=== PATIENT | female | born 1945 | race Caucasian/White ===

== ENCOUNTER 2016-11-14 13:08 | Outpatient (CLI) | payer MEDICARE, OTHER | END 2016-11-14 13:09 | disposition home or self-care (01) | LOC: BURLAB 13:08 | PROVIDERS: ATTEND Neurological Surgery | DX: Z01.812 Encounter for preprocedural laboratory examination (principal) | CPT/HCPCS: 36415; 82565 ==

== ENCOUNTER 2016-11-15 14:22 | Outpatient (CLI) | payer MEDICARE, OTHER ==
[~2016-11-15 14:22] MED LIST: Magnevist 469MG/ML 20 ML VIAL ONE
--- NOTE | 2016-11-15 18:09 | MRI ---
MRI LUMBAR SPINE WITH AND WITHOUT CONTRAST 11/15/16 Multiplanar and multisequential imaging lumbar spine obtained. Postcontrast images obtained with adm inistration of 15 mL of Multihance. HISTORY: Low back pain. History of prior lumbar surgery. Comparison made to lumbar MRI of 05/30/14. That exam described a transitional vertebra. Postop danny ctomy changes were seen at what was labeled L5-S1. There is a large synovial cyst on the left at L4- 5 noted on that exam measuring up to 1.2 cm. The same nomenclature will be followed on today's exam. This makes S1 a transitional vertebrae. The lumbar vertebrae maintain height and alignment. No evidence of disc bulge or protrusion seen at L1-2, L2-3, or L3-4 levels. There is mild facet arth rosis at these levels; however, no central canal or foraminal stenosis. At L4-5, there are posterior laminectomy changes. There is facet hypertrophy compressing the thecal sac from each side. Facet arthrosis with fluid in the facet joint. The large synovial cyst at this l evel noted previously is no longer seen. Mild central canal stenosis. At L5-S1, no significant disc bulge or protrusion. Facet arthrosis and mild hypertrophy. Posterior l aminectomy change. Very mild central canal stenosis due to facet hypertrophy. IMPRESSION: Postoperative changes at L4-5 and L5-S1. The large synovial cyst on the left at L4-5 is no longer pr esent. Facet arthrosis and hypertrophy seen at these levels as described above. POS: [facility]
--- NOTE | 2016-11-15 21:06 | RAD ---
LUMBAR SPINE 11/15/16 The patient has a transitional lumbosacral vertebra. The lowest freely moveable vertebra will be lab eled L5 and consistent with the labeling on her MRI exams. There is some very minimal anterolisthesis of L4 on L5 that appears to be due to some mild facet art hritis at this level. With flexion, the L4 vertebra moves forward by about 2 mm. There is mild disc space narrowing at L4-L5. The other vertebrae appear intact. There is no excessive motion with exten mehce. The aorta and proximal iliac arteries are densely calcified. IMPRESSION: Mild grade I anterolisthesis of L4 on L5. L4 moves anteriorly an additional 2 mm or so with flexion and does not change much position with extension. There is disc space narrowing at this level. POS: HOME
== END 2016-11-15 14:23 | disposition home or self-care (01) ==
LOC: BURMRI 14:22
PROVIDERS: ATTEND Neurological Surgery
DX: M54.16 Radiculopathy, lumbar region (principal); M71.38 Other bursal cyst, other site
CPT/HCPCS: 72100; 72158; A9579

== ENCOUNTER 2016-12-17 08:13 | Outpatient (CLI) | payer MEDICARE, OTHER ==
[2016-12-17 09:06] LABS: ALT (SGPT) 29 U/L (0-55); AST (SGOT) 20 U/L (5-34); Alkaline Phosphatase 75 U/L (40-150); Bilirubin, Direct 0.2 mg/dL (0.1-0.3); Bilirubin, Total 0.6 mg/dL (0.2-1.2); LDL Cholesterol, Calculated 89 mg/dL; Protein, Total 6.5 g/dL (5.8-8.1)
== END 2016-12-17 08:14 | disposition home or self-care (01) ==
LOC: BURLAB 08:13
PROVIDERS: ATTEND Internal Medicine Cardiovascular Disease
DX: E78.00 Pure hypercholesterolemia, unspecified (principal)
CPT/HCPCS: 36415; 80061; 80076

== ENCOUNTER 2017-05-22 10:40 | Outpatient (CLI) | payer MEDICARE, OTHER ==
--- NOTE | 2017-05-22 18:08 | ULT ---
CAROTID ULTRASOUND 05/22/17 Bilateral color duplex doppler ultrasonography of the carotid and vertebral circulation was performe d in this patient with syncopal issues. Some plaque and intimal thickening is seen in each distal common carotid artery and extending into e ach bifurcation. No large grossly obstructing plaques were seen. Analysis of the right carotid syste m showed peak flows of 87/18 cm/s in the right ICA with a normal 1.15 systolic velocity ratio. Flows in the common carotid artery and external carotid artery were within normal limits. Vertebral flow on the right was antegrade. Peak flows in the left carotid system were 98/28 with a normal 1.31 systolic velocity ratio. Flows i n the common and external carotid arteries were within normal limits. Vertebral flow in the left was antegrade. IMPRESSION: Abundant plaque formation is noted but no hemodynamically significant stenoses were encountered. POS: HOME
== END 2017-05-22 10:41 | disposition home or self-care (01) ==
LOC: BURULT 10:40
PROVIDERS: ATTEND Family Medicine
DX: R55 Syncope and collapse (principal); G45.1 Carotid artery syndrome (hemispheric)
CPT/HCPCS: 93880

== ENCOUNTER 2017-12-06 13:06 | Outpatient (CLI) | payer MEDICARE, OTHER ==
--- NOTE | 2017-12-06 17:30 | RAD ---
LUMBAR SPINE FIVE VIEWS 12/06/17 The patient appears to have a transitional vertebra at the lumbosacral junction with a partially fuse d disc space below it. This will be labeled as S1. No fracture, dislocation, or acute bony change was seen. There is slight disc space narrowing at L4-L5 with small anterior osteophytes. There is probab ly some mild facet arthritis at the L4 through S1 levels. Flexion and extension lateral views did not show any abnormal motion of the spine. Incidentally noted was dense arteriosclerosis of the distal a bibiana and iliac arteries. Additionally, a large amount of fecal material is seen in the colon. IMPRESSION: 1. No acute bony findings. 2. Slight disc space narrowing at L4-L5. POS: HOME
== END 2017-12-06 13:07 | disposition home or self-care (01) ==
LOC: BURRAD 13:06
PROVIDERS: ATTEND Nurse Practitioner Family
DX: M43.06 Spondylolysis, lumbar region (principal); M99.73 Connective tissue and disc stenosis of intervertebral foramina of lumbar region
CPT/HCPCS: 72110

== ENCOUNTER 2018-02-24 06:12 | Emergency (ER) | payer MEDICARE, OTHER ==
[2018-02-24] MEDS ORDERED: Fentanyl 100 MCG/2 ML VIAL ONE ×2 (06:53→07:38)
[2018-02-24 07:04] LABS: #Basophils 0.1 thou/uL (0.0-0.2); #Eosinphils 0.1 thou/uL (0.0-0.7); #Monocytes 0.9 thou/uL (0.11-0.59); #Neutrophils 10.7 thou/uL (1.40-6.50); %Basophils 0.7 % (0.0-1.0); %Eosinophils 0.6 % (0.0-10.0); %Lymphocytes 14.5 % (21.0-51.0); %Monocytes 6.4 % (0.0-10.0); %Neutrophils 77.9 % (42.0-75.0); Hemoglobin 18.4 g/dL (12.0-16.0); Mean Corpuscular HGB CONC 35.4 g/dL (32.0-36.0); Mean Corpuscular Hemoglobin 30.9 pg (27.0-31.0); Mean Corpuscular Volume 87.1 fl (81.0-99.0); Mean Platelet Volume 6.7 fL (7.4-10.4); Platelet Count 247 thou/uL (130-400); RBC Distribution Width 12.4 % (11.5-14.5); Red Blood Cell (RBC) Count 5.95 mill/uL (4.20-5.40); White Blood Cell (WBC) Count 13.7 thou/uL (4.8-10.8)
[2018-02-24 07:06] LABS: Bilirubin Negative (Negative); Blood, Urine Large (Negative); Clarity Cloudy (Clear); Glucose, Urine (Dipstick) Negative (Negative); Leukocyte Large (Negative); Nitrite Negative (Negative); Protein, Urine (Dipstick) 100 mg/dL (Neg-Trace); Specific Gravity, Urine 1.025 (1.005-1.030); Urobilinogen 0.2 mg/dL (0.2-1.0); pH, Urine 5.5 (5.0-9.0)
[2018-02-24 07:10] LABS: ALT (SGPT) 41 U/L (8-55); AST (SGOT) 36 U/L (5-34); Alkaline Phosphatase 97 U/L (40-150); Anion Gap 15 mmol/L (10-20); BUN (Urea Nitrogen) 13 mg/dL (9.8-20.1); Bilirubin, Total 0.4 mg/dL (0.2-1.2); Calc. Creatinine Clearance 0 mL/min (70-130); Calcium 9.8 mg/dL (7.8-10.44); Carbon Dioxide 27 mmol/L (23-31); Chloride 103 mmol/L (98-107); Estimated GFR-MDRD 73; Globulin 3.2 g/dL (2.4-3.5); Glucose 121 mg/dL (83-110); Protein, Total 7.2 g/dL (6.0-8.3); Sodium 141 mmol/L (136-145)
[2018-02-24 07:16] LABS: Bacteria/HPF 1+ HPF (None Seen); Crystals/HPF 1+ AMORPH URATES HPF (Negative); Squamous Epithelial 0-3 HPF (0-3)
[2018-02-24] MEDS ORDERED: cefTRIAXone\\ROCEPHIN 2 GM VIAL ONE (07:38)
[2018-02-24] MEDS ORDERED: Sodium Chloride 0.9% 100 ML ONE (07:38)
[2018-02-24] MEDS ORDERED: Dicyclomine 20 MG TAB ONE (08:01)
[2018-02-24] MEDS ORDERED: Ketorolac Tromethamine 30 MG/ML VIAL ONE (08:01)
[2018-02-24] MEDS ORDERED: Ondansetron HCl/PF 4 MG/2 ML Vial ONE (08:07)
--- NOTE | 2018-02-24 20:04 | RAD ---
AP PORTABLE CHEST: 02/24/2018 0632 HOURS COMPARISON: 12/18/2012 FINDINGS: The heart remains normal in size, and the lungs are clear. No infiltrate or effusion is seen. There is no vascular congestion or edema. Faint calcification is seen in the aortic arch. IMPRESSION: Stable exam showing no acute findings. POS: HOME
--- NOTE | 2018-02-24 20:59 | CT ---
CT ABDOMEN AND PELVIS WITHOUT CONTRAST RENAL STONE PROTOCOL: 02/24/2018 HISTORY: A spiral CT of the abdomen and pelvis was performed for evaluation of abdominal pain. TECHNIQUE: Axial slices were acquired and then coronal and sagittal reconstructions were done. FINDINGS: ABDOMEN: The main finding on the study is an obstructing left ureteral calculus, measuring 9 x 5 mm. It is located at the L3 level. It causes moderately severe left hydronephrosis with surrounding pe rinephric stranding. Other calcifications seen in this kidney may actually be vascular in nature. T he right kidney shows no obstruction or large calculi. There is probably a small parapelvic cyst in the lower pole. The lung bases are clear. The liver is dense, consistent with diffuse fatty infiltration. There are two rounded water density structures in the liver: A 2.5 cm structure in the dome of the liver on t he right and a 2 cm area in the left lobe. These are most likely simple cysts. The spleen, pancreas , gallbladder, adrenal glands, and abdominal aorta show no acute findings, within the limitations of a noncontrast study. The aorta is calcified to some extent. There are probably also a few calcifica tions in branches of the right coronary artery. PELVIS: No pelvic masses, fluid collections, or inflammatory changes were seen. IMPRESSION: 1. A 9 x 5 mm obstructing ureteral calculus in the left ureter, at about the L3 level. This is caus ing moderate left hydronephrosis. 2. Diffuse fatty infiltration of the liver; presumed hepatic cysts. 3. Probable coronary arteriosclerosis. Findings in agreement with preliminary reading by Joseph. POS: HOME
== END 2018-02-24 09:49 | disposition short-term general hospital (02) ==
LOC: BURERS 06:12
DX: N13.2 Hydronephrosis with renal and ureteral calculous obstruction (principal); N12 Tubulo-interstitial nephritis, not specified as acute or chronic; J44.9 Chronic obstructive pulmonary disease, unspecified; I10 Essential (primary) hypertension; F17.210 Nicotine dependence, cigarettes, uncomplicated; Z79.899 Other long term (current) drug therapy
CPT/HCPCS: 36415; 71045; 74176; 80053; 81003; 81015; 83605; 85025; 85379; 87040; 87077; 87086; 87186; 93005; 94640; 94760; 96361; 96365; 96375; 96376; J0696; J1885; J2405; J3010; J7050; J7620

== ENCOUNTER 2018-11-06 13:35 | Outpatient (CLI) | payer MEDICARE, OTHER ==
--- NOTE | 2018-11-06 18:15 | RAD ---
LUMBAR SPINE 11/06/18 As on prior studies, there is disc space narrowing at L4-5 as well as spondylolisthesis at this level . The difference in motion and between flexion and extension is about 3 mm. No new findings were seen elsewhere. The SI joints appear normal. The aorta is densely calcified. IMPRESSION: Spondylolisthesis of L4 on L5 with about 3 mm of motion between flexion and extension. POS: HOME
== END 2018-11-06 13:36 | disposition home or self-care (01) ==
LOC: BURRAD 13:35
PROVIDERS: ATTEND Neurological Surgery
DX: M54.16 Radiculopathy, lumbar region (principal); M43.16 Spondylolisthesis, lumbar region
CPT/HCPCS: 72120

== ENCOUNTER 2019-04-30 15:02 | Outpatient (CLI) | payer MEDICARE, OTHER ==
--- NOTE | 2019-04-30 18:18 | RAD ---
CERVICAL SPINE: 04/30/19 AP, open mouth and lateral views are provided. 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 I do not have prior films available for comparison. Ot her than some straightening of the lower cervical spine, there was no acute abnormality. No fracture, dislocation, or soft tissue swelling was present. The C1 to dense distance is normal. C7 and T1 wer e difficult to see well. There were some carotid artery calcifications noted, more so on the left. IMPRESSION: No definite acute findings. POS: HOME
== END 2019-04-30 15:03 | disposition home or self-care (01) ==
LOC: BURRAD 15:02
PROVIDERS: ATTEND Family Medicine
DX: M54.2 Cervicalgia (principal)
CPT/HCPCS: 72040

== ENCOUNTER 2021-03-27 12:32 | Emergency (ER) | payer MEDICARE, OTHER ==
[2021-03-27] MEDS ORDERED: methylPREDNISolone Sod Succ/PF 125 MG/2 ML VIAL ONE (13:26)
[2021-03-27] MEDS ORDERED: Aspirin Chewable 81 MG TAB ONE (13:26)
[2021-03-27 13:40] LABS: #Basophils 0.1 thou/uL (0.0-0.2); #Lymphocytes 2.1 thou/uL (1.20-3.40); #Monocytes 0.7 thou/uL (0.11-0.59); #Neutrophils 8.5 thou/uL (1.40-6.50); %Basophils 1.2 % (0.0-1.0); %Eosinophils 0.3 % (0.0-10.0); %Lymphocytes 18.3 % (21.0-51.0); %Neutrophils 74.2 % (42.0-75.0); Hemoglobin 17.8 g/dL (12.0-16.0); Mean Corpuscular HGB CONC 33.4 g/dL (32.0-36.0); Mean Corpuscular Hemoglobin 31.1 pg (27.0-31.0); Mean Corpuscular Volume 93.3 fL (78.0-98.0); Mean Platelet Volume 7.9 fL (7.4-10.4); Platelet Count 263 thou/uL (130-400); RBC Distribution Width 11.6 % (11.5-14.5); Red Blood Cell (RBC) Count 5.72 mill/uL (4.20-5.40); White Blood Cell (WBC) Count 11.4 thou/uL (4.8-10.8)
[2021-03-27] MEDS ORDERED: Azithromycin 500 MG VIAL ONE (13:45)
[2021-03-27] MEDS ORDERED: cefTRIAXone\\ROCEPHIN 1 GM VIAL ONE ×2 (13:45)
[2021-03-27 13:59] LABS: ALT (SGPT) 61 U/L (8-55); AST (SGOT) 40 U/L (5-34); Albumin 3.7 g/dL (3.4-4.8); Alkaline Phosphatase 106 U/L (40-110); Anion Gap 16 mmol/L (10-20); BUN (Urea Nitrogen) 13 mg/dL (9.8-20.1); Bilirubin, Total 0.5 mg/dL (0.2-1.2); Calc. Creatinine Clearance 0 mL/min (70-130); Calcium 9.2 mg/dL (7.8-10.44); Carbon Dioxide 23 mmol/L (23-31); Chloride 99 mmol/L (98-107); Globulin 3.2 g/dL (2.4-3.5); Glucose 108 mg/dL (83-110); Magnesium 1.7 mg/dL (1.6-2.6); Potassium 4.3 mmol/L (3.5-5.1); Protein, Total 6.9 g/dL (5.8-8.1); Sodium 134 mmol/L (136-145)
[2021-03-27 14:40] LABS: SARS-CoV-2 NAA Rapid Test Not Detected (NotDetected)
== END 2021-03-27 15:09 | disposition home or self-care (01) ==
LOC: BURERS 12:32
DX: J44.1 Chronic obstructive pulmonary disease with (acute) exacerbation (principal); J18.9 Pneumonia, unspecified organism; I10 Essential (primary) hypertension; I25.10 Atherosclerotic heart disease of native coronary artery without angina pectoris; F17.210 Nicotine dependence, cigarettes, uncomplicated; Z20.822 Contact with and (suspected) exposure to COVID-19; Z79.899 Other long term (current) drug therapy; Z79.82 Long term (current) use of aspirin
CPT/HCPCS: 0240U; 71045; 80053; 83605; 83735; 83880; 84484; 85025; 87040; 93005; 36415; 96365; 96367; 96375; J0456; J0696; J2930; J7620

== ENCOUNTER 2021-05-03 22:28 | Emergency (ER) | payer MEDICARE, OTHER ==
[~2021-05-03 22:28] MED LIST changes: +Iopamidol 370 76% 100 ML VIAL ONE; -Magnevist 469MG/ML 20 ML VIAL ONE
[2021-05-03 22:52] LABS: Hemoglobin 14.6 g/dL (12.0-16.0); Mean Corpuscular HGB CONC 33.8 g/dL (32.0-36.0); Mean Corpuscular Hemoglobin 32.2 pg (27.0-31.0); Mean Corpuscular Volume 95.4 fL (78.0-98.0); Mean Platelet Volume 7.9 fL (7.4-10.4); Platelet Count 335 thou/uL (130-400); RBC Distribution Width 13.3 % (11.5-14.5); Red Blood Cell (RBC) Count 4.54 mill/uL (4.20-5.40); White Blood Cell (WBC) Count 21.6 thou/uL (4.8-10.8)
[2021-05-03 23:07] LABS: ALT (SGPT) 280 U/L (8-55); AST (SGOT) 141 U/L (5-34); Albumin 3.5 g/dL (3.4-4.8); Alkaline Phosphatase 351 U/L (40-110); Anion Gap 17 mmol/L (10-20); BUN (Urea Nitrogen) 14 mg/dL (9.8-20.1); Bilirubin, Total 1.6 mg/dL (0.2-1.2); Calc. Creatinine Clearance 0 mL/min (70-130); Calcium 9.5 mg/dL (7.8-10.44); Carbon Dioxide 26 mmol/L (23-31); Chloride 103 mmol/L (98-107); Glucose 155 mg/dL (83-110); Potassium 3.7 mmol/L (3.5-5.1); Protein, Total 6.5 g/dL (5.8-8.1); Sodium 142 mmol/L (136-145)
[2021-05-03 23:14] LABS: Lymphocytes 1 % (21-51); MDiff Complete? YES; Monocytes 4 % (0-10); Neutrophil 95 % (42-75); Platelet Morphology Comment Appears Adequate; RBC Morphology Normal
[2021-05-03] MEDS ORDERED: Cefepime 2 GM VIAL ONE (23:39)
[2021-05-03] MEDS ORDERED: Sodium Chloride 0.9% 100 ML ONE (23:39)
[2021-05-04 01:28] LABS: Lactic Acid 1.3 mmol/L (0.5-2.2)
[2021-05-04 01:31] LABS: SARS-CoV-2 NAA Rapid Test Not Detected (NotDetected)
== END 2021-05-04 01:55 | disposition short-term general hospital (02) ==
LOC: BURERS 22:28
DX: J18.9 Pneumonia, unspecified organism (principal); R09.02 Hypoxemia; Z20.822 Contact with and (suspected) exposure to COVID-19; I10 Essential (primary) hypertension; I25.10 Atherosclerotic heart disease of native coronary artery without angina pectoris; F17.210 Nicotine dependence, cigarettes, uncomplicated; Z85.3 Personal history of malignant neoplasm of breast; Z79.891 Long term (current) use of opiate analgesic; Z79.82 Long term (current) use of aspirin; Z79.899 Other long term (current) drug therapy
CPT/HCPCS: 71275; 80053; 83605; 83880; 84484; 85025; 93005; U0002; 96365; 96367; J0692; J3370; J3490; J7620; Q9967